=== PATIENT | female | born 1935 | race Caucasian/White ===

== ENCOUNTER 2016-11-08 02:17 | Emergency (ER) | payer MEDICARE ==
--- NOTE | 2016-11-08 02:34 | Emergency Department Record ---
History of Present Illness - General Chief Complaint: Headache Migraine Stated Complaint: HEADACHE Time Seen by Provider: 11/08/16 02:28 Source: Patient Mode of Arrival: EMS Limitations: No limitations - History of Present Illness Initial Comments: 81 yo female presents to ED with a CC of a headache that she awoke with this morning, now resolved. Patient denies numbness, tingling, or extremity weakness. Patient denies headache pain currently. Patient does take anticoagulation medications. Patient denies fevers, chills, or recent head injury. Patient does report similar symptoms in September with a negative work- up. Complaint: Headache Onset/Timin -: Hour(s) Onset Description: Sudden, Awoke with symptoms Location: Occipital Severity: Mild Severity scale (1-10): 1 Quality: Aching Consistency: Now resolved Improves With: Nothing Worsens With: None - Related Data Home Medications Medication Instructions Recorded Confirmed Last Taken Allopurinol [Allopurinol] 150 mg PO DAILY 09/25/16 11/08/16 11/07/16 Aspirin Chewable 81 mg PO DAILY 09/25/16 11/08/16 11/07/16 Clopidogrel Bisulfate [Plavix] 75 mg PO DAILY 09/25/16 11/08/16 11/07/16 Clotrimazole/Betamethasone Dip 1 applic TOP Q2HR 09/25/16 11/08/16 Unknown [Clotrimazole-Betamethasone Crm] Furosemide [Lasix] 20 mg PO ASDIR 09/25/16 11/08/16 11/07/16 Gabapentin [Gabapentin] 300 mg PO TID 09/25/16 11/08/16 11/07/16 Insulin Glargine,Hum.rec.anlog 22 units SQ DAILY 09/25/16 11/08/16 11/07/16 [Lantus] Lisinopril [Lisinopril] 5 mg PO DAILY 09/25/16 11/08/16 11/07/16 Paricalcitol [Zemplar] 1 mcg PO DAILY 09/25/16 11/08/16 11/07/16 Paroxetine HCl [Paroxetine HCl] 30 mg PO QAM 09/25/16 11/08/16 11/07/16 Ranitidine HCl [Acid Control] 150 mg PO BID 09/25/16 11/08/16 11/07/16 Simvastatin [Simvastatin] 20 mg PO QHS 09/25/16 11/08/16 11/07/16 Allergies Allergy/AdvReac Type Severity Reaction Status Date / Time No Known Drug Allergies Allergy Verified 11/08/16 02:26 Travel Screening - Travel/Exposure Within Last 30 Days Have you traveled within the last 30 days?: No - Travel/Exposure Within Last Year Have you traveled outside the [place] in the last year?: No - Additonal Travel Details Have you been exposed to anyone with a communicable illness?: No - Travel Symptoms Symptom Screening: None Review of Systems Constitutional: Denies: Chills, Fever, Malaise, Night sweats Eyes: Denies: Eye discharge, Eye pain ENT: Denies: Congestion, Ear pain, Epistaxis Respiratory: Denies: Cough, Dyspnea Cardiovascular: Denies: Chest pain, Dyspnea on exertion Endocrine: Denies: Fatigue, Heat or cold intolerance Gastrointestinal: Denies: Abdominal pain, Nausea, Vomiting Musculoskeletal: Denies: Arthralgia, Back pain, Gout Skin: Denies: Bruising, Change in color Neurological: Reports: Headache. Denies: Abnormal gait, Confusion, Seizure Psychiatric: Denies: Anxiety Hematological/Lymphatic: Denies: Anemia, Blood Clots Past Medical History - SOCIAL HISTORY Smoking Status: Never smoker Alcohol Use: None Drug Use: None - RESPIRATORY Hx Respiratory Disorders: No - CARDIOVASCULAR Hx Cardio Disorders: Yes Hx Hypertension: Yes Comment:: stents - NEURO Hx Neuro Disorders: Yes Hx CVA: Yes ("while ago") - GI Hx GI Disorders: No - Hx Genitourinary Disorders: No - ENDOCRINE Hx Endocrine Disorders: Yes Hx Diabetes: Yes - PSYCH Hx Psych Problems: No - HEMATOLOGY/ONCOLOGY Hx Hematology/Oncology Disorders: No Family Medical History Any Significant Family History?: No Hx Heart Disease: Father *Heart Comment: KNIGHT Physical Exam - General General Appearance: Alert, Oriented x3, Cooperative, No acute distress Limitations: No limitations - Head Head exam: Atraumatic, Normocephalic, Normal inspection Head exam detail: negative: Abrasion, Contusion, Valladares's sign, General tenderness, Hematoma, Laceration - Eye Eye exam: Normal appearance. negative: Conjunctival injection, Periorbital swelling, Periorbital tenderness, Scleral icterus - ENT Ear exam: negative: Auricular hematoma, Auricular trauma Nasal Exam: negative: Active bleeding, Discharge, Dried blood, Foreign body Mouth exam: negative: Drooling, Laceration, Muffled voice, Tongue elevation - Neck Neck exam: Normal inspection. negative: Meningismus, Tenderness - Respiratory Respiratory exam: Normal lung sounds bilaterally. negative: Respiratory distress, Rhonchi, Stridor, Wheezes - Cardiovascular Cardiovascular Exam: Regular rate, Normal rhythm, Normal heart sounds - GI/Abdominal GI/Abdominal exam: Soft. negative: Rebound, Rigid, Tenderness - Rectal Rectal exam: Deferred - exam: Deferred - Extremities Extremities exam: Normal inspection. negative: Calf tenderness, Pedal edema, Tenderness - Back Back exam: Reports: Normal inspection. Denies: CVA tenderness (R), CVA tenderness (L) - Neurological Neurological exam: Alert, Normal gait, Oriented X3 - Psychiatric Psychiatric exam: Normal affect, Normal mood - Skin Skin exam: Normal color. negative: Abrasion Type of lesion: abrasion Course Vital Signs 11/08/16 02:19 Temperature 98.1 F Pulse Rate 76 Respiratory 16 Rate Blood Pressure 128/71 Pulse Ox 95 - Reevaluation(s) Reevaluation #1: 11/08/16 03:11 Patient is back from CT imaging, reports that her headache symptoms have not returned. Patient is resting comfortably reading a book. Reevaluation #2: 11/08/16 03:15 CT Brain: Atrophy, no acute process Patient updated on all results, reports that she is feeling well and appears stable for discharge at this time. Patient has no clinical signs for acute CVA , has steady gait, and denies any acute weakness symptoms. 11/08/16 03:15 11/08/16 03:16 Disposition Disposition: Discharge Clinical Impression: Headache Qualifiers: Headache type: unspecified Headache chronicity pattern: acute headache Intractability: not intractable Qualified Code(s): R51 - Headache Disposition: Home, Self-Care Condition: (2) Stable Instructions: Acute Headache (ED) Additional Instructions: Return to ED if your symptoms worsen or if you have any concerns. Follow-up with your family doctor in 3-5 days as directed. Forms: Patient Portal Access Time of Disposition: 03:14
--- NOTE | 2016-11-11 07:55 | CT SCAN REPORT ---
EXAM: CT OF THE BRAIN WITHOUT CONTRAST HISTORY: HEADACHE. TECHNIQUE: Sequential axial images were obtained from the foramen magnum to the vertex without contrast administration. FINDINGS: There is age appropriate cortical atrophy. There is periventricular small vessel ischemia. No large territorial infarct, hemorrhage, mass effect, or midline shift. The orbits, paranasal sinuses, and mastoid air cells are normal. IMPRESSION: PERIVENTRICULAR SMALL VESSEL ISCHEMIA. NO ACUTE INTRACRANIAL ABNORMALITY IS APPRECIATED. JOB NUMBER: [id number] [facility]
== END 2016-11-08 04:09 | disposition home or self-care (01) ==
LOC: ER 02:17
DX: R51 Headache (principal); I10 Essential (primary) hypertension; E11.9 Type 2 diabetes mellitus without complications; Z79.4 Long term (current) use of insulin
CPT/HCPCS: 70450; 99283